=== PATIENT | female | born 1950 | race Caucasian/White ===

== ENCOUNTER 2021-09-30 09:06 | Day surgery (SDC) | payer MEDICARE, OTHER ==
[~2021-09-30] VITALS: Ht 160 cm; Wt 89.0 kg
[~2021-09-30 09:06] MED LIST: ASCORBIC ACID500 MG PO; ASPIRIN EC81 MG PO; ATACAND32 MG PO; BOSWELLIA PO; CALCIUM 1,0001 EACH PO; CENTRUM ADULTS1 EACH PO; CO Q-10200 MG PO; DICLOFENAC SODI75 MG PO; FAMCICLOVIR250 MG PO; GINKGO BILOBA120 M1 PO; GINSENG100 MG PO; INDERAL20 MG PO; MAGNESIUM500 MG PO; MELOXICAM15 MG PO; NIACIN500 MG PO; OMEGA 3 1,0001 EACH PO; PROZAC20 MG PO; QUERCETIN DIHYDR1 GM PO; RED YEAST RICE600 MG PO; SELENIUM200 MC2 PO; STRESS B-COMPL1 EACH PO; SYNTHROID50 MCG PO; TURMERIC PO; VITAMIN D3125 MC1 PO; XALATAN2.5 ML OU; ZINC50 M2 PO; ZYRTEC10 M3 PO; [UNRECOGNIZED DRUG - OTHER] PO; [UNRECOGNIZED DRUG - OTHER] PO
[2021-10-01 06:33] LABS: BASOPHIL 0.1 % (0-2); EOSINOPHIL 0.4 % (0-7); HCT 31.7 % (37.0-47.0); HGB 10.6 g/dl (12.5-16.0); LYMPHOCYTE 15.9 % (15-48); MCH 31.1 pg (25.0-31.0); MCHC 33.4 g/dL (32.0-36.0); MONOCYTE 9.4 % (0-12); MPV 8.6 fL (6.0-9.5); NEUTROPHIL 74.1 % (41-80); NRBC 0; PLT 137 K/uL (150-400); RBC 3.41 M/uL (4.20-5.40); RDW 14.6 % (11.5-14.0); WBC 7.9 K/uL (4.0-10.5)
[2021-10-01 06:55] LABS: BUN/CREAT RATIO (CALC) 22.2 RATIO; CREATININE 0.63 mg/dL (0.51-0.95); POTASSIUM 4.1 mmol/L (3.5-5.1)
[2021-10-01] MEDS ORDERED: FEOSOL325 MG PO (09:05)
[2021-10-01] MEDS ORDERED: OXYCODONE-ACET1 EAC1 PO (09:05)
[2021-10-01] MEDS ORDERED: ASPIRIN325 MG PO (09:05)
[2021-10-01] MEDS ORDERED: ONDANSETRON HCL4 MG PO (09:11)
--- NOTE | 2021-10-01 09:49 | NUR ---
PT WILL D/C HOME. SHE HAS NO NEEDS AT THIS TIME.
== END 2021-10-01 14:15 | disposition home or self-care (01) ==
LOC: FAS 09:06 → FMS 13:46 → FAS 10-01 14:15
PROVIDERS: Legal Medicine
DX: M75.101 Unspecified rotator cuff tear or rupture of right shoulder, not specified as traumatic (principal); S76.011A Strain of muscle, fascia and tendon of right hip, initial encounter; M70.61 Trochanteric bursitis, right hip; M19.011 Primary osteoarthritis, right shoulder; F17.200 Nicotine dependence, unspecified, uncomplicated; I10 Essential (primary) hypertension; F41.9 Anxiety disorder, unspecified; E78.5 Hyperlipidemia, unspecified; Z88.1 Allergy status to other antibiotic agents; Z88.8 Allergy status to other drugs, medicaments and biological substances; X58.XXXA Exposure to other specified factors, initial encounter
CPT/HCPCS: 36415; 73020; 80048; 85025; 86850; 86900; 86901; 93005; 94010; 94762; 97162; 97166; 97530-GP; 97535; C1713; C1776; J0171; J1885; J2250; J2270; J2370; J2405; J2704; J2795; J3010; J7120